=== PATIENT | female | born 1985 | race Caucasian/White ===

== ENCOUNTER 2018-01-22 13:06 | Emergency (ER) | payer MEDICAID ==
[~2018-01-22] VITALS: Ht 157.5 cm; Wt 70.5 kg
[2018-01-22 13:29] VITALS: BP 141/81; Ht 157.5 cm; Wt 70.5 kg
[2018-01-22] MEDS ORDERED: ADDERALL 10 MG10 MG PO (13:30)
== END 2018-01-22 15:25 | disposition left against medical advice (07) ==
LOC: D.ER 13:06
DX: R20.2 Paresthesia of skin (principal)

== ENCOUNTER 2019-11-18 17:43 | Emergency (ER) | payer MEDICAID ==
[~2019-11-18] VITALS: Ht 157.5 cm; Wt 72.7 kg
[~2019-11-18 17:43] MED LIST: ADDERALL 10 MG10 MG PO
[2019-11-18 17:52] VITALS: Ht 157.5 cm; Wt 72.7 kg
[2019-11-18] MEDS ORDERED: BUPRENORPHINE HC8 MG (17:57)
[2019-11-18 21:01] LABS: BILIRUBIN NEGATIVE (NEGATIVE); GLUCOSE NEGATIVE (NEGATIVE); KETONE NEGATIVE (NEGATIVE); NITRITE NEGATIVE (NEGATIVE); SPECIFIC GRAVITY 1.025 (1.005-1.020); UROBILINOGEN NORMAL (NORMAL)
[2019-11-18 21:03] LABS: EPITHELIAL CELLS 0-5 /hpf (0-5); WHITE CELLS - URINE 0-5 /hpf (NEGATIVE)
[2019-11-18 21:04] LABS: BACTERIA NONE SEEN /hpf (NEGATIVE); YEAST <1+ /hpf (NONE SEEN)
[2019-11-18 21:16] LABS: HEMATOCRIT 38.4 % (36.0-48.0); MCH 28.8 pg (26.0-34.0); MCHC 33.9 g/dL (31.0-37.0); MCV 85.1 fL (80.0-100.0); MEAN PLATELET VOLUME 9.9 fL (7.4-10.4); NEUTROPHILS 77.5 % (40-80); PLATELET COUNT 253 10x3/uL (130-400); RBC 4.51 10x6/uL (4.00-5.40); RDW 13.4 % (11.5-14.5)
[2019-11-18 21:26] LABS: CALC OSMOLALITY 268 mosm/kg (275-300); CALCIUM 8.8 mg/dL (8.5-10.1); CARBON DIOXIDE 25.7 mmol/L (21.0-32.0); CHLORIDE - SERUM 101 mmol/L (98-107); CREATININE - SERUM 0.6 mg/dL (0.6-1.3); GLUCOSE 90 mg/dL (74-106); POTASSIUM - SERUM 3.3 mmol/L (3.5-5.1); SODIUM 135 mmol/L (136-145); UREA NITROGEN 11 mg/dL (7-18); eGFR NON AFRICAN AMERICAN > 90 mL/min (90-120)
[2019-11-18 21:53] LABS: ALBUMIN 3.8 g/dL (3.4-5.0); ALKALINE PHOSPHATASE 47 U/L (30-120); ALT (SGPT) 16 U/L (10-68); BILIRUBIN - TOTAL 0.44 mg/dL (0.2-1.3); HCG - QUANTITATIVE (MATERNAL) 98753 mIU/mL; LIPASE 63 U/L (73-393); PROTEIN - SERUM 7.6 g/dL (6.4-8.2)
[2019-11-18] MEDS ORDERED: FOLIC ACID0.8 MG PO (22:23)
[2019-11-18] MEDS ORDERED: MULTI-DAY VITAM1 TAB PO (22:23)
[2019-11-18] MEDS ORDERED: MIRALAX17 GM PO (22:38)
[2019-11-18 23:00] VITALS: BP 132/88
== END 2019-11-18 23:00 | disposition home or self-care (01) ==
LOC: D.ER 17:43
PROVIDERS: Family Medicine
DX: O26.91 Pregnancy related conditions, unspecified, first trimester (principal); Z3A.13 13 weeks gestation of pregnancy; R11.2 Nausea with vomiting, unspecified; K59.00 Constipation, unspecified